=== PATIENT | female | born 1960 | race Caucasian/White ===

== ENCOUNTER → 2017-05-29 | Outpatient (CLI) | payer OTHER | END | disposition home or self-care (01) | LOC: C.PAPS 13:23 | PROVIDERS: ATTEND Family Medicine | DX: Z12.4 Encounter for screening for malignant neoplasm of cervix (principal) ==

== ENCOUNTER → 2017-05-30 | Outpatient (CLI) | payer OTHER ==
[2017-05-30 10:52] LABS: BLOOD UREA NITROGEN 9 mg/dl (7-18); BUN/CREATININE RATIO 11.6 (10-20); CALCIUM 9.3 mg/dl (8.5-10.1); CARBON DIOXIDE 28 mmol/L (21-32); CHLORIDE 108 mmol/L (98-107); CHOLESTEROL 192 mg/dl (0-200); CREATININE 0.73 mg/dl (0.60-1.20); GLUCOSE 88 mg/dl (70-99); POTASSIUM 4.6 mmol/L (3.5-5.1); SODIUM 139 mmol/L (136-145)
[2017-05-30 11:03] LABS: CHOLESTEROL/HDL RATIO 2.6; HDL CHOLESTEROL 73 mg/dl; LDL CHOLESTEROL CALCULATED 99 mg/dl; TRIGLYCERIDES 102 mg/dl (0-150); VERY LOW DENSITY LIPOPROT CALC 20 mg/dl
== END | disposition home or self-care (01) ==
LOC: C.LAB 08:47
PROVIDERS: ATTEND Family Medicine
DX: Z00.00 Encounter for general adult medical examination without abnormal findings (principal); Z13.220 Encounter for screening for lipoid disorders; R63.5 Abnormal weight gain

== ENCOUNTER → 2017-10-30 | Outpatient (CLI) | payer OTHER ==
--- NOTE | 2017-10-30 09:39 | DIAGNOSTIC IMAGING REPORT ---
R SHOULDER MIN 2 VIEWS ROUTINE CLINICAL HISTORY: M25.511 Shoulder pain, [id number] pain COMPARISON: None. DISCUSSION: No acute bony abnormality. Soft tissue calcifications. To the right acromioclavicular joint as well as potentially represents 6 support mechanism. Minimal degenerative changes of acromioclavicular joint specifically. There is no evidence for soft tissue swelling. IMPRESSION: Minimal degenerative change acromioclavicular joint. No acute bony abnormality. The above report was generated using voice recognition software. It may contain grammatical, syntax or spelling errors. Electronically signed by: Markos Araiza M.D. 10/30/2017 9:37 AM Dictated Date/Time: 10/30/2017 9:36 AM
== END | disposition home or self-care (01) ==
LOC: C.RAD 09:07
PROVIDERS: ATTEND Physician Assistant
DX: M25.511 Pain in right shoulder (principal)

== ENCOUNTER → 2017-11-12 | Outpatient (CLI) | payer OTHER ==
--- NOTE | 2017-11-16 07:39 | MAMMOGRAPHY REPORT ---
UNILATERAL RIGHT DIGITAL SCREENING MAMMOGRAM TOMOSYNTHESIS WITH CAD: 11/12/2017 CLINICAL HISTORY: Asymptomatic. Personal history of breast cancer. TECHNIQUE: Breast tomosynthesis in addition to standard 2D mammography was performed. Current study was also evaluated with a Computer Aided Detection (CAD) system. COMPARISON: Comparison is made to exams dated: 10/06/2016 mammogram, 10/03/2015 mammogram, 4 mammogram, 09/22/2013 mammogram, 09/17/2012 mammogram, and 09/16/2011 mammogram - [facility] [place]. BREAST COMPOSITION: There are scattered areas of fibroglandular density in the right breast. FINDINGS: There are no suspicious masses, calcifications, or areas of architectural distortion noted in the right breast. There has been no significant interval change compared to prior exams. IMPRESSION: ACR BI-RADS CATEGORY 1: NEGATIVE There is no mammographic evidence of malignancy in the right breast. A 1 year screening mammogram is recommended. The patient will receive written notification of the results. Approximately 10% of breast cancers are not detected with mammography. A negative mammographic report should not delay biopsy if a clinically suggestive mass is present. Josephine Edmonds M.D. ah/:11/12/2017 16:03:34 [employer] Underwriter: Vania SEGAL)(M), [facility] letter sent: Normal 1/2 BI-RADS Code: ACR BI-RADS Category 1: Negative
== END | disposition home or self-care (01) ==
LOC: C.MAMM 13:26
PROVIDERS: ATTEND Family Medicine
DX: Z12.31 Encounter for screening mammogram for malignant neoplasm of breast (principal); Z90.12 Acquired absence of left breast and nipple

== ENCOUNTER 2025-07-02 16:34 | Observation (INO) ==
--- NOTE | 2025-07-02 16:59 | Emergency Department Note ---
Impression & Plan Pancreatitis, Abdominal pain, Elevated serum glucose ED Provider Note NAME: HAYLEY SOLIS AGE: 64 SEX: F : 1960 ARRIVES VIA: Walk-In INFORMANT: Patient ED PROVIDER(S): Rod Kaplan DO CHIEF COMPLAINT: Abdominal pain HPI: Patient is a 64-year-old female with a past medical history of diabetes, asthma, and COPD who presents ER for periumbilical/epigastric abdominal pain. This started on Thursday. Is associated with nausea. She forced herself to vomit. No previous abdominal surgeries. No dysuria, urgency, or frequency. Pain is slightly worse with eating. No other exacerbating or remitting factors. No fevers. ADDITIONAL HISTORY OBTAINED: Per HPI Chronic Medical/Social Conditions Affecting Care: Per HPI PAST MEDICAL HISTORY:See Below PAST SURGICAL HISTORY:See Below FAMILY HISTORY:See Below SOCIAL HISTORY:See Below HOME MEDICATIONS:See Below ALLERGIES:See Below VITALS:See Below PHYSICAL EXAMINATION: GENERAL: Sitting up in bed, alert, well appearing, well nourished, no distress, non-toxic EYE EXAM: normal conjunctiva. OROPHARYNX: mucous membranes are moist LUNGS: Clear to auscultation. Normal chest wall mechanics HEART: no murmurs, S1 normal and S2 normal ABDOMEN: abdomen soft, minimal tenderness in right upper quadrant, normo-active bowel sounds, no masses, no rebound or guarding. BACK: Back is symmetrical on inspection and there is no deformity, no midline tenderness, no CVA tenderness. SKIN: no rashes and no bruising UPPER EXTREMITIES: upper extremities are grossly normal. LOWER EXTREMITIES: No pitting edema. NEURO EXAM: Normal sensorium, cranial nerves II-XII grossly intact, normal speech, no gross weakness of arms, no gross weakness of legs. MEDICAL DECISION MAKING: Patient is a 64-year-old female who presents ER for abdominal pain. IV was established and blood work was obtained. Labs show mild leukocytosis of 13,000. No significant anemia. BMP with mild hyponatremia at 134. LFTs bilirubin was unremarkable. Lipase was elevated around 300. UA was contaminated. CT Abdo pelvis consistent with pancreatitis. Did show some possible diverticulitis. Was covered with IV Zosyn and IV fluids and morphine. Was updated at bedside. Discussed case with the hospitalist for further evaluation management treatment. Consults/Care Managements Discussions: Per MDM Triage Nursing notes reviewed. Limited review of prior medical records performed Vital Signs: reviewed and remarkable for HTN Differential diagnosis: Differential diagnoses includes but is not limited to gastritis, peptic ulcer disease, GERD, gallbladder disease, pancreatitis, small bowel obstruction, appendicitis, diverticulitis, hernia, urinary tract infection, torsion, /ectopic (if female), perforation, trauma, infectious. ER treatment provided: See below Diagnostics interpreted by me include EKG and cardiac monitoring as listed below: -Cardiac Monitoring: An order was placed for continuous cardiac monitoring. The monitor shows a rate of 90 with sinus rhythm. -ECG: none -Laboratory studies:Interpreted by me as stated above in MDM and shown below. Imaging studies: Xrays: As interpreted by me:none CTs show: CT abdomen pelvis per my pleurae interpretation shows no obvious bowel obstruction CT Abdo pelvis per radiology as described above Procedures:none Critical Care: None Past Med/Surg History Problem List (Updated 07/02/25 @ 22:11 by Rod Kaplan DO) Elevated serum glucose (Acute) Abdominal pain (Acute) Diverticulitis Pancreatitis (Acute) Osteoporosis Vulvitis Vitamin D insufficiency Prediabetes Asthma Emphysema of lung Obesity Tobacco abuse Allergic rhinitis COPD (chronic obstructive pulmonary disease) Anxiety and depression Genital herpes simplex Personal history of breast cancer (1998) Raynauds phenomenon Medical History Biceps tendinitis Snoring Personal history of nicotine dependence Mild airflow obstruction on pulmonary function test Right wrist fracture Chlamydia Surgical History History of hip surgery (02/2024) R ORIF secondary to fracture post fall S/P wrist surgery (08/22/16) R wirst radial shortening osteotomy Status post breast reconstruction Status post tubal ligation History of modified radical mastectomy of left breast (1998) Status post exploratory laparotomy Status post LASIK surgery Family History Father , age 56 Aneurysm Mother Atrial fibrillation Cardiac disorder Multiple myeloma Brother Colorectal cancer, Onset Age: 53 Liver cancer Grandfather Lung cancer Denies family history of Ovarian cancer Prostate cancer Myocardial infarction Breast cancer Social History Smoking Status: Current every day smoker Tobacco Type: Cigarettes Age Started Using Tobacco: 10; packs per day: 1; Second Hand Exposure: No; Do You Dip or Chew Tobacco: No; Hx Alcohol Use: Yes Alcohol Intake Frequency: Monthly or Less Alcohol Intake Frequency Comment: social Hx Substance Use: No Preferred Language: Telugu Visual Impairment: No Limitations Hearing Ability: Normal Outsole Leveler Required: No Beliefs That Will Affect Care: None marital status: single Current Living Situation: Significant Other current occupational status: unemployed 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 How many Children do You have: 2 Feels Safe at Home: Yes Childhood Exposure to Second-Hand Smoke: Yes Diet: regular Diet Comment: regular caffeine: Yes during the past year weight has: remained stable Dental Care, Regularly: Yes Physical Activity Frequency: 3-4 Times per Week Seatbelt Use: always Sunscreen Use: Yes Allergies Allergies Allergy/AdvReac Type Severity Reaction Status Date / Time codeine AdvReac Mild Nausea Verified 07/02/25 21:45 Home Meds Previous Rx's Medication Instructions Recorded fluticasone propionate 50 2 spray intranasal DAILY PRN 01/23/23 mcg/actuation nasal Allergy Symptoms 90 days #48 grams spray,suspension (Flonase Allergy Relief) albuterol sulfate 2.5 mg/3 mL 2.5 mg (3 mL) inhalation Q4H PRN 09/07/23 (0.083 %) solution for nebulization shortness of breath or wheezing #90 mL naproxen 500 mg tablet 500 mg PO Q12H PRN pain #60 tabs 04/08/24 cholecalciferol (vitamin D3) 50 50 mcg PO DAILY #30 caps 04/12/24 mcg (2,000 unit) capsule valacyclovir 500 mg tablet 500 mg PO BID PRN Outbreak #180 06/02/24 (Valtrex) tabs albuterol sulfate 90 mcg/actuation 2 inh inhalation Q6H PRN shortness 04/21/25 aerosol inhaler of breath or wheezing #8.5 grams nystatin 100,000 unit/gram topical 1 applic topical BID PRN groin 05/05/25 powder (Nystop) irritation #60 grams fluticasone fur. 100 mcg-umeclid 1 inh inhalation DAILY #60 ea 05/15/25 62.5 mcg-vilant 25 mcg inhalat.powder (Trelegy Ellipta) Results & Data (ED) Vital Signs Vital Signs - 24 hr 07/02/25 16:42 07/02/25 17:04 07/02/25 17:11 Temperature 37.1 C Temperature Source Temporal Artery Scan Pulse Rate 95 H Pulse Rate [Apical] 87 Pulse Rhythm [Apical] Pulse Strength [Apical] Normal Respiratory Rate 16 18 Respiratory Effort / Characteristics Non-Labored Spontaneous Non-Labored Spontaneous Respiratory Depth Normal Normal Respiratory Pattern Regular Blood Pressure 156/93 H Blood Pressure [Right Arm] 167/88 H Blood Pressure Mean 114 Blood Pressure Mean [Right Arm] 114 Blood Pressure Position Sitting Pulse Oximetry 97 96 96 Oxygen Delivery Method Room Air Room Air Room Air Sepsis Recent Fever Within 48 Hours No Sepsis New/Unexplained Change in Mental Status N/A Sepsis Action Taken by Nursing No Action Required 07/02/25 17:16 07/02/25 18:40 07/02/25 19:00 Temperature Temperature Source Pulse Rate 88 Pulse Rate [Apical] 87 87 Pulse Rhythm [Apical] Regular Pulse Strength [Apical] Normal Normal Respiratory Rate 18 18 Respiratory Effort / Characteristics Non-Labored Spontaneous Non-Labored Spontaneous Respiratory Depth Normal Normal Respiratory Pattern Regular Regular Blood Pressure Blood Pressure [Right Arm] 180/117 H 167/95 H Blood Pressure Mean Blood Pressure Mean [Right Arm] 138 119 Blood Pressure Position Pulse Oximetry 98 97 Oxygen Delivery Method Room Air Room Air Sepsis Recent Fever Within 48 Hours Sepsis New/Unexplained Change in Mental Status Sepsis Action Taken by Nursing Laboratory Data 07/02/25 17:05 07/02/25 17:05 Lab Results 07/02/25 Range/Units 17:05 WBC 13.08 H (4.8-10.8) K/ul RBC 4.75 (4.20-5.40) M/uL Hgb 15.6 (12.0-16.0) g/dl Hct 43.4 (37.0-47.0) % MCV 91.4 (80.0-100.0) fL MCH 32.8 (25.0-34.0) pg MCHC 35.9 (32.0-36.0) g/dL RDW Std Deviation 42.3 (36.4-46.3) fL RDW Coeff of Sigrid 12.5 (11.5-14.5) % Plt Count 213 (130-400) K/uL MPV 11.7 (9.4-12.4) fL Immature Gran % (Auto) 0.3 % Neut % (Auto) 77.0 % Lymph % (Auto) 11.9 % [place] % (Auto) 9.5 % Eos % (Auto) 1.1 % Baso % (Auto) 0.2 % Neut # (Auto) 10.08 H (1.40-6.50) K/uL Lymph # (Auto) 1.56 (1.20-3.40) K/uL [place] # (Auto) 1.24 H (0.11-0.59) K/uL Eos # (Auto) 0.14 (0.00-0.50) K/uL Baso # (Auto) 0.02 (0.00-0.20) K/uL Immature Gran # (Auto) 0.04 (0.01-0.20) K/uL Sodium 134 L (136-145) mmol/L Potassium 4.5 (3.5-5.1) mmol/L Chloride 101 (98-107) mmol/L Carbon Dioxide 25 (21-32) mmol/L Anion Gap 8 (3-11) BUN 10 (6-23) mg/dl Creatinine 0.66 (0.6-1.2) mg/dl Est Cr Clr Drug Dosing 83.0 ml/min eGFR 97.29 BUN/Creatinine Ratio 15.2 (10-20) Glucose 112 H (70-99(Fasting)) mg/dl Calcium 9.8 (8.6-10.3) mg/dl Total Bilirubin 0.6 (0.2-1.0) mg/dl AST 21 (13-39) U/L ALT 14 (7-52) U/L Alkaline Phosphatase 86 (34-104) U/L Total Protein 7.7 (6.0-8.3) gm/dl Albumin 4.5 (3.4-5.0) gm/dl Globulin 3.2 (2.5-4.0) gm/dl Albumin/Globulin Ratio 1.4 (0.9-2) Lipase 286 H (11-82) U/L Urine Color Yellow Urine Appearance Clear (Clear) Urine pH 6.5 (4.5-7.5) Ur Specific [place] 1.018 (1.000-1.030) Urine Protein Trace H (Negative) Urine Glucose (UA) Negative (Negative) Urine Ketones 1+ H (Negative) Urine Blood Negative (Negative) Urine Nitrite Negative (Negative) Urine Bilirubin Negative (Negative) Urine Urobilinogen Negative (Negative) Ur Leukocyte Esterase Trace H (Negative) Urine WBC (Auto) 0-5 (0-5) /hpf Urine RBC (Auto) 3-5 H (0-2) /hpf U Hyaline Cast (Auto) 0-2 (0-2) /lpf U Epithel Cells (Auto) 3-5 H (0-2) /hpf Urine Bacteria (Auto) None Seen (None Seen) Urine Comment Administered Medications Lactated Ringer's (Lr) 1,000 mls @ 200 mls/hr IV .Q5H LALITA Stop: 07/03/25 12:59 Last Admin: 07/02/25 21:59 Dose: 200 mls/hr Documented By: MICHELLE Senna/Docusate Sodium (Docusate Sodium/Senna 50/8.6mg Tab) 2 tab PO HS LALITA Stop: 08/01/25 21:40 Last Admin: 07/02/25 21:48 Dose: Not Given Documented By: MICHELLE Discontinued Medications Sodium Chloride (Nss) 1,000 mls @ 999 mls/hr IV .Q1H1M ONE Stop: 07/02/25 17:56 Last Infusion: 07/02/25 18:35 Dose: Infused Documented By: Admin: 07/02/25 17:05 Dose: 999 mls/hr Documented By: MARIE Piperacillin Sod/Tazobactam Sod (Zosyn) 4.5 gm in 100 mls @ 200 mls/hr IV NOW ONE; Protocol Stop: 07/02/25 20:35 Last Infusion: 07/02/25 21:20 Dose: Infused Documented By: Admin: 07/02/25 20:25 Dose: 200 mls/hr Documented By: LASHONDA Ioversol (Optiray 320 100ml) 93 ml IV ONCE ONE Stop: 07/02/25 18:29 Last Admin: 07/02/25 18:28 Dose: 93 ml Documented By: MARLENY Morphine Sulfate (Morphine Sulfate 2 Mg/Ml Carp) 2 mg IV NOW STA Stop: 07/02/25 19:15 Last Admin: 07/02/25 19:20 Dose: 2 mg Documented By: DAREK Ondansetron HCl (Ondansetron Inj 2 Mg/Ml 2 Ml Vial) 4 mg IV NOW STA Stop: 07/02/25 16:57 Last Admin: 07/02/25 17:08 Dose: 4 mg Documented By: MARIE Imaging Data Radiologist's Impression: Abdomen/Pelvis CT 07/02/25 16:56 CT ABDOMEN and PELVIS with INTRAVENOUS CONTRAST HISTORY: Abdominal pain TECHNIQUE: CT abdomen and pelvis with contrast. IV CONTRAST: 100 mL of OMNIPAQUE 300 ENTERIC CONTRAST: Not Given COMPARISON: CT abdomen pelvis October 21, 2020. FINDINGS: LOWER CHEST: Unremarkable LIVER: No focal lesion identified. Hepatic steatosis GALLBLADDER/BILIARY: Unremarkable gallbladder. No abnormal biliary dilatation. SPLEEN: Unremarkable. PANCREAS: There are inflammatory changes of the pancreas with peripancreatic fat stranding and fluid. No organized/drainable peripancreatic fluid collection is identified.. ADRENALS: Unremarkable. KIDNEYS: Atrophic right kidney. No stones or hydronephrosis identified. PERITONEUM/RETROPERITONEUM. No lymphadenopathy by size criteria. No aortic aneurysm. GASTROINTESTINAL: No obstruction. Normal appendix. Multiple loops of small bowel demonstrate inflammatory changes with mild wall thickening. There is a long segment wall thickening to the sigmoid colon and the rectum. Extensive colonic diverticular disease of the sigmoid colon with more focal mild the pericolonic fat stranding by the sigmoid colon. REPRODUCTIVE: No suspicious pelvic mass is identified. URINARY BLADDER: Unremarkable BONES: No acute findings. Intramedullary christian/screw in the proximal right femur IMPRESSION: Findings of acute interstitial pancreatitis. No drainable/organized fluid collection is identified surrounding the pancreas. Recommend correlation with lipase. Mild colitis of the sigmoid colon and the rectum is also suggested. Extensive colonic diverticular disease of the sigmoid colon where there is a more focal pericolonic inflammation. This could represent a superimposed mild acute diverticulitis. Electronically signed by Darrell Noel 07-02-2025 8:01 PM Discharge Plan Visit Data Chief Complaint: Abdominal Pain Stated Complaint: UPPER ABD PAIN ED Provider: Rod Kaplan Discharge Problem: Pancreatitis, Abdominal pain, Elevated serum glucose Condition: Fair Discharge Instructions Interventions: ED Discharge Assessment Last Done: 07/02/25 21:07 Discharge Problem: Pancreatitis Qualifiers: Chronicity: acute Pancreatitis type: unspecified pancreatitis type Acute pancreatitis complication: unspecified Qualified Code(s): K85.90 - Acute pancreatitis without necrosis or infection, unspecified Abdominal pain Qualifiers: Abdominal location: unspecified location Qualified Code(s): R10.9 - Unspecified abdominal pain
[2025-07-02] MEDS: SODIUM CHLORIDE 0.9% 1,000 ML IV ONE (17:05)
[2025-07-02] MEDS: ONDANSETRON INJ 2 MG/ML 2 ML VIAL IV STA (17:08)
[2025-07-02 17:34] LABS: Hematocrit (blood only) 43.4 % (37.0-47.0); Hemoglobin 15.6 g/dl (12.0-16.0); Immature Granulocytes # (auto) 0.04 K/uL (0.01-0.20); Immature Granulocytes % (auto) 0.3 %; Mean Corpuscular Hemoglobin 32.8 pg (25.0-34.0); Mean Corpuscular Volume 91.4 fL (80.0-100.0); Platelet Count 213 K/uL (130-400); RDW Standard Deviation 42.3 fL (36.4-46.3); Red Blood Count 4.75 M/uL (4.20-5.40); White Blood Count 13.08 K/ul (4.8-10.8)
[2025-07-02 17:51] LABS: Appearance Urine Clear (Clear); Bacteria Urine Automated None Seen (None Seen); Cast Urine Automated 0-2 /lpf (0-2); Glucose Urine UA Negative (Negative); WBC Urine Automated 0-5 /hpf (0-5)
[2025-07-02 18:04] LABS: Alanine Aminotransferase 14.0 U/L (7-52); Albumin Globulin Ratio 1.4 (0.9-2); Alkaline Phosphatase 86.0 U/L (34-104); Anion Gap 8.0 (3-11); Bilirubin,Total 0.6 mg/dl (0.2-1.0); Blood Urea Nitrogen 10.0 mg/dl (6-23); Calcium 9.8 mg/dl (8.6-10.3); Carbon Dioxide 25.0 mmol/L (21-32); Chloride 101.0 mmol/L (98-107); Creatinine Clr Calc Pharmacy 83.0 ml/min; Globulin 3.2 gm/dl (2.5-4.0); Glucose 112.0 mg/dl (70-99(Fasting)); Lipase 286.0 U/L (11-82); Potassium 4.5 mmol/L (3.5-5.1); Sodium 134.0 mmol/L (136-145); Total Protein 7.7 gm/dl (6.0-8.3)
[2025-07-02] MEDS: OPTIRAY 320 100ml IV ONE (18:28)
[2025-07-02] MEDS: MoRPHine SULFATE 2 MG/ML CARP IV STA (19:20)
--- NOTE | 2025-07-02 19:34 | History & Physical Report ---
Date of Service July 02, 2025 Assessment & Plan (1) Pancreatitis: (2) Diverticulitis: (3) COPD (chronic obstructive pulmonary disease): Plan 64yo female with history of COPD presenting with upper abdominal pain. #Acute pancreatitis - patient is afebrile, HD stable, non-toxic in appearance. Her pain is in the upper abdomen. Mildly elevated lipase = 286. CT of the abdomen significant for acute interstitial pancreatitis with no drainable/organized fluid collection. No gallstones present. Etiology likely secondary to patient's GLP-1 which she recently started. -Observation to medical -Keep NPO -Check Lipid panel to assess TG level -LR at 200mL/hr x 3L ordered -Pain control with Morphine PRN - 2mg for pain 1-5 and 4mg for pain 6-10 -Zofran PRN nausea -Bowel regimen scheduled and PRN - Docusate/Senna 2tabs po qHS, Miralax PRN -Narcan available as needed for accidental overdose #Diverticulitis - CT as above with possible diverticulitis. Patient with no lower abdominal pain. Patient has received a dose of Zosyn -Will hold off on additional antibiotics for now -Repeat CBC in AM -Patient should have followup imaging vs colonoscopy for followup of focal pericolonic inflammation #COPD -Continue Trelegy or formulary equivalent -Albuterol PRN #Ppx - Lovenox History of Present Illness Chief Complaint: upper abdominal pain Primary Care Provider: DO Kusum Hughes Cristina is a pleasant 64yo female with history of COPD presenting with abdominal pain. Patient went out to dinner with her grandson on Thursday06/30/25 evening. They went to [employer] and she had some iced tea and pizza. Around 21:00 she developed severe, bandlike, upper abdominal pain with nausea. She had several episodes of dry heaving. Pain has been persistent, progressively worsening, 8/10 in severity on arrival. Patient has not been eating - had some soup today but pain increased. She took Mylanta and Pepto-Bismol with no relief. No prior history of pancreatitis. She drinks EtOH socially but did not drink on the day her pain started. No history of gallstones. Patient did inform ER Nurse Julio that, on Saturday 06/30, she did started taking a GLP-1 medication that she purchased off [employer]. In the ER patient afebrile, mildly hypertensive otherwise stable. ER Course: NSS x 1L Zofran 4mg IV Morphine 2mg IV Zosyn 4.5gm IV Allergies Allergy/AdvReac Type Severity Reaction Status Date / Time Codeine Derivatives Allergy Mild nausea Uncoded 07/02/25 20:00 Home Medications Medication Instructions Recorded Confirmed Type fluticasone propionate 50 2 spray intranasal DAILY PRN 01/23/23 07/02/25 Rx mcg/actuation nasal Allergy Symptoms 90 days #48 grams spray,suspension (Flonase Allergy Relief) albuterol sulfate 2.5 mg/3 mL 2.5 mg (3 mL) inhalation Q4H PRN 09/07/23 07/02/25 Rx (0.083 %) solution for nebulization shortness of breath or wheezing #90 mL naproxen 500 mg tablet 500 mg PO Q12H PRN pain #60 tabs 04/08/24 07/02/25 Rx cholecalciferol (vitamin D3) 50 50 mcg PO DAILY #30 caps 04/12/24 07/02/25 Rx mcg (2,000 unit) capsule valacyclovir 500 mg tablet 500 mg PO BID PRN Outbreak #180 06/02/24 07/02/25 Rx (Valtrex) tabs albuterol sulfate 90 mcg/actuation 2 inh inhalation Q6H PRN shortness 04/21/25 07/02/25 Rx aerosol inhaler of breath or wheezing #8.5 grams nystatin 100,000 unit/gram topical 1 applic topical BID PRN groin 05/05/25 07/02/25 Rx powder (Nystop) irritation #60 grams fluticasone fur. 100 mcg-umeclid 1 inh inhalation DAILY #60 ea 05/15/25 07/02/25 Rx 62.5 mcg-vilant 25 mcg inhalat.powder (Trelegy Ellipta) Past Med/Surg History Problem List (Updated 07/02/25 @ 21:31 by Genet Wang DO) Diverticulitis Pancreatitis Osteoporosis Vulvitis Vitamin D insufficiency Prediabetes Asthma Emphysema of lung Obesity Tobacco abuse Allergic rhinitis COPD (chronic obstructive pulmonary disease) Anxiety and depression Genital herpes simplex Personal history of breast cancer (1998) Raynauds phenomenon Medical History Biceps tendinitis Snoring Personal history of nicotine dependence Mild airflow obstruction on pulmonary function test Right wrist fracture Chlamydia Surgical History History of hip surgery (02/2024) R ORIF secondary to fracture post fall S/P wrist surgery (08/22/16) R wirst radial shortening osteotomy Status post breast reconstruction Status post tubal ligation History of modified radical mastectomy of left breast (1998) Status post exploratory laparotomy Status post LASIK surgery Family History Father , age 56 Aneurysm Mother Atrial fibrillation Cardiac disorder Multiple myeloma Brother Colorectal cancer, Onset Age: 53 Liver cancer Grandfather Lung cancer Denies family history of Ovarian cancer Prostate cancer Myocardial infarction Breast cancer Social History Smoking Status: Current every day smoker Tobacco Type: Cigarettes Age Started Using Tobacco: 10; packs per day: 1; Second Hand Exposure: No; Do You Dip or Chew Tobacco: No; Hx Alcohol Use: Yes Alcohol Intake Frequency: Monthly or Less Alcohol Intake Frequency Comment: social Hx Substance Use: No Preferred Language: Vietnamese Visual Impairment: No Limitations Hearing Ability: Normal [employer] Mathematics Teacher Required: No Beliefs That Will Affect Care: None marital status: single Current Living Situation: Significant Other current occupational status: unemployed 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 How many Children do You have: 2 Feels Safe at Home: Yes Childhood Exposure to Second-Hand Smoke: Yes Diet: regular Diet Comment: regular caffeine: Yes during the past year weight has: remained stable Dental Care, Regularly: Yes Physical Activity Frequency: 3-4 Times per Week Seatbelt Use: always Sunscreen Use: Yes Review of Systems Review of Systems: All systems reviewed & are unremarkable except as noted in HPI & below Physical Exam Physical Exam: General: patient resting comfortably, NAD, non-toxic in appearance, AA&O x 4 Skin: warm, dry, intact, no rashes or lesions HEENT: NC/AT, PERRL, EOMI, anicteric sclera, conjunctiva without injection, external ear normal to inspection and nontender, nares patent, moist mucus membranes, dentition intact, no oropharyngeal lesions, neck supple, trachea midline, no LAD, no thyromegaly, no JVD Heart: +S1/S2, regular, no m/r/g Lungs: equal air entry bilaterally, no rales/rhonchi/wheezes Abd: +BS, soft, ND, tenderness in the mid-abdomen, no bruising, no masses/organomegaly/ascites Ext: warm, 2+ pulses in UE/LE bilaterally, no clubbing/cyanosis or edema Neuro: nonfocal, patient AA&O x 4, speech intact, no facial droop, moving all extremities on command with equal strength 5/5 Results & Data Results & Data Vital Signs (Past 12 Hours) Vital Signs Temp Pulse Pulse Resp BP BP Pulse Ox 07/02/25 19:00 87 18 167/95 H 97 07/02/25 18:40 87 18 180/117 H 98 07/02/25 17:16 88 07/02/25 17:11 87 18 167/88 H 96 07/02/25 17:04 96 07/02/25 16:42 37.1 C 95 H 16 156/93 H 97 O2 Del Method 07/02/25 19:00 Room Air 07/02/25 18:40 Room Air 07/02/25 17:16 07/02/25 17:11 Room Air 07/02/25 17:04 Room Air 07/02/25 16:42 Room Air Laboratory Results Laboratory Results WBC 13.08 K/ul (4.8-10.8) H 07/02/25 17:05 RBC 4.75 M/uL (4.20-5.40) 07/02/25 17:05 Hgb 15.6 g/dl (12.0-16.0) 07/02/25 17:05 Hct 43.4 % (37.0-47.0) 07/02/25 17:05 MCV 91.4 fL (80.0-100.0) 07/02/25 17:05 MCH 32.8 pg (25.0-34.0) 07/02/25 17:05 MCHC 35.9 g/dL (32.0-36.0) 07/02/25 17:05 RDW Std Deviation 42.3 fL (36.4-46.3) 07/02/25 17:05 RDW Coeff of Sigrid 12.5 % (11.5-14.5) 07/02/25 17:05 Plt Count 213 K/uL (130-400) 07/02/25 17:05 MPV 11.7 fL (9.4-12.4) 07/02/25 17:05 Immature Gran % (Auto) 0.3 % 07/02/25 17:05 Neut % (Auto) 77.0 % 07/02/25 17:05 Lymph % (Auto) 11.9 % 07/02/25 17:05 [place] % (Auto) 9.5 % 07/02/25 17:05 Eos % (Auto) 1.1 % 07/02/25 17:05 Baso % (Auto) 0.2 % 07/02/25 17:05 Neut # (Auto) 10.08 K/uL (1.40-6.50) H 07/02/25 17:05 Lymph # (Auto) 1.56 K/uL (1.20-3.40) 07/02/25 17:05 [place] # (Auto) 1.24 K/uL (0.11-0.59) H 07/02/25 17:05 Eos # (Auto) 0.14 K/uL (0.00-0.50) 07/02/25 17:05 Baso # (Auto) 0.02 K/uL (0.00-0.20) 07/02/25 17:05 Immature Gran # (Auto) 0.04 K/uL (0.01-0.20) 07/02/25 17:05 Sodium 134 mmol/L (136-145) L 07/02/25 17:05 Potassium 4.5 mmol/L (3.5-5.1) 07/02/25 17:05 Chloride 101 mmol/L (98-107) 07/02/25 17:05 Carbon Dioxide 25 mmol/L (21-32) 07/02/25 17:05 Anion Gap 8 (3-11) 07/02/25 17:05 BUN 10 mg/dl (6-23) 07/02/25 17:05 Creatinine 0.66 mg/dl (0.6-1.2) 07/02/25 17:05 Est Cr Clr Drug Dosing 83.0 ml/min 07/02/25 17:05 eGFR 97.29 07/02/25 17:05 BUN/Creatinine Ratio 15.2 (10-20) 07/02/25 17:05 Glucose 112 mg/dl (70-99(Fasting)) H 07/02/25 17:05 Calcium 9.8 mg/dl (8.6-10.3) 07/02/25 17:05 Total Bilirubin 0.6 mg/dl (0.2-1.0) 07/02/25 17:05 AST 21 U/L (13-39) 07/02/25 17:05 ALT 14 U/L (7-52) 07/02/25 17:05 Alkaline Phosphatase 86 U/L (34-104) 07/02/25 17:05 Total Protein 7.7 gm/dl (6.0-8.3) 07/02/25 17:05 Albumin 4.5 gm/dl (3.4-5.0) 07/02/25 17:05 Globulin 3.2 gm/dl (2.5-4.0) 07/02/25 17:05 Albumin/Globulin Ratio 1.4 (0.9-2) 07/02/25 17:05 Lipase 286 U/L (11-82) H 07/02/25 17:05 Urine Color Yellow 07/02/25 17:05 Urine Appearance Clear (Clear) 07/02/25 17:05 Urine pH 6.5 (4.5-7.5) 07/02/25 17:05 Ur Specific Barnes 1.018 (1.000-1.030) 07/02/25 17:05 Urine Protein Trace (Negative) H 07/02/25 17:05 Urine Glucose (UA) Negative (Negative) 07/02/25 17:05 Urine Ketones 1+ (Negative) H 07/02/25 17:05 Urine Blood Negative (Negative) 07/02/25 17:05 Urine Nitrite Negative (Negative) 07/02/25 17:05 Urine Bilirubin Negative (Negative) 07/02/25 17:05 Urine Urobilinogen Negative (Negative) 07/02/25 17:05 Ur Leukocyte Esterase Trace (Negative) H 07/02/25 17:05 Urine WBC (Auto) 0-5 /hpf (0-5) 07/02/25 17:05 Urine RBC (Auto) 3-5 /hpf (0-2) H 07/02/25 17:05 U Hyaline Cast (Auto) 0-2 /lpf (0-2) 07/02/25 17:05 U Epithel Cells (Auto) 3-5 /hpf (0-2) H 07/02/25 17:05 Urine Bacteria (Auto) None Seen (None Seen) 07/02/25 17:05 Urine Comment 07/02/25 17:05 Impressions Abdomen/Pelvis CT 07/02/25 16:56 CT ABDOMEN and PELVIS with INTRAVENOUS CONTRAST HISTORY: Abdominal pain TECHNIQUE: CT abdomen and pelvis with contrast. IV CONTRAST: 100 mL of OMNIPAQUE 300 ENTERIC CONTRAST: Not Given COMPARISON: CT abdomen pelvis October 21, 2020. FINDINGS: LOWER CHEST: Unremarkable LIVER: No focal lesion identified. Hepatic steatosis GALLBLADDER/BILIARY: Unremarkable gallbladder. No abnormal biliary dilatation. SPLEEN: Unremarkable. PANCREAS: There are inflammatory changes of the pancreas with peripancreatic fat stranding and fluid. No organized/drainable peripancreatic fluid collection is identified.. ADRENALS: Unremarkable. KIDNEYS: Atrophic right kidney. No stones or hydronephrosis identified. PERITONEUM/RETROPERITONEUM. No lymphadenopathy by size criteria. No aortic aneurysm. GASTROINTESTINAL: No obstruction. Normal appendix. Multiple loops of small bowel demonstrate inflammatory changes with mild wall thickening. There is a long segment wall thickening to the sigmoid colon and the rectum. Extensive colonic diverticular disease of the sigmoid colon with more focal mild the pericolonic fat stranding by the sigmoid colon. REPRODUCTIVE: No suspicious pelvic mass is identified. URINARY BLADDER: Unremarkable BONES: No acute findings. Intramedullary christian/screw in the proximal right femur IMPRESSION: Findings of acute interstitial pancreatitis. No drainable/organized fluid collection is identified surrounding the pancreas. Recommend correlation with lipase. Mild colitis of the sigmoid colon and the rectum is also suggested. Extensive colonic diverticular disease of the sigmoid colon where there is a more focal pericolonic inflammation. This could represent a superimposed mild acute diverticulitis. Electronically signed by Darrell Noel 07-02-2025 8:01 PM PG Care Time/CCT Total # of Minutes Spent Total Time Spent with Patient: Total time spent is greater than 50% in coordination of care (as documented) at patient's floor/unit and/or counseling patient: Coding Level of Care Code 14540 INT INP/OBS CARE 3/75MIN Diagnoses Pancreatitis K85.90 Diverticulitis K57.92 COPD (chronic obstructive pulmonary disease) J44.9
--- NOTE | 2025-07-02 20:02 | CT Scan Report ---
CT ABDOMEN and PELVIS with INTRAVENOUS CONTRAST HISTORY: Abdominal pain TECHNIQUE: CT abdomen and pelvis with contrast. IV CONTRAST: 100 mL of OMNIPAQUE 300 ENTERIC CONTRAST: Not Given COMPARISON: CT abdomen pelvis October 21, 2020. FINDINGS: LOWER CHEST: Unremarkable LIVER: No focal lesion identified. Hepatic steatosis GALLBLADDER/BILIARY: Unremarkable gallbladder. No abnormal biliary dilatation. SPLEEN: Unremarkable. PANCREAS: There are inflammatory changes of the pancreas with peripancreatic fat stranding and fluid. No organized/drainable peripancreatic fluid collection is identified.. ADRENALS: Unremarkable. KIDNEYS: Atrophic right kidney. No stones or hydronephrosis identified. PERITONEUM/RETROPERITONEUM. No lymphadenopathy by size criteria. No aortic aneurysm. GASTROINTESTINAL: No obstruction. Normal appendix. Multiple loops of small bowel demonstrate inflammatory changes with mild wall thickening. There is a long segment wall thickening to the sigmoid colon and the rectum. Extensive colonic diverticular disease of the sigmoid colon with more focal mild the pericolonic fat stranding by the sigmoid colon. REPRODUCTIVE: No suspicious pelvic mass is identified. URINARY BLADDER: Unremarkable BONES: No acute findings. Intramedullary christian/screw in the proximal right femur IMPRESSION: Findings of acute interstitial pancreatitis. No drainable/organized fluid collection is identified surrounding the pancreas. Recommend correlation with lipase. Mild colitis of the sigmoid colon and the rectum is also suggested. Extensive colonic diverticular disease of the sigmoid colon where there is a more focal pericolonic inflammation. This could represent a superimposed mild acute diverticulitis. Electronically signed by Darrell Noel 07-02-2025 8:01 PM
[2025-07-02] MEDS: PIPERACILLIN/TAZOBACTAM 4.5 GM/100 ML BAG IV ONE (20:25)
[2025-07-02] MEDS ORDERED: NALOXONE HCL 0.4 MG/1 ML VIAL/CARP IV PRN (21:41)
[2025-07-02] MEDS ORDERED: ONDANSETRON INJ 2 MG/ML 2 ML VIAL IV PRN (21:41)
[2025-07-02] MEDS ORDERED: MoRPHine SULFATE 2 MG/ML CARP IV PRN (21:41)
[2025-07-02] MEDS ORDERED: MoRPHine SULFATE 4 MG/ML 1 ML CARP\\VIAL IV PRN (21:41)
[2025-07-02] MEDS ORDERED: POLYETHYLENE (MIRALAX) 17 GM PACK PO PRN (21:41)
[2025-07-02] MEDS ORDERED: ACETAMINOPHEN 325 MG TAB PO PRN (21:41)
[2025-07-02] MEDS ORDERED: ALBUTEROL HFA 8 GM INHALER INH PRN (21:41)
[2025-07-02] MEDS: DOCUSATE SODIUM/SENNA 50/8.6MG TAB PO SCH (21:48)
[2025-07-02] MEDS: LACTATED RINGER'S 1,000 ML IV SCH (21:59)
[2025-07-03 00:07] LABS: Magnesium 2.0 mg/dl (1.7-2.4)
[2025-07-03 00:12] LABS: Cholesterol 195.0 mg/dl (0-200); HDL Cholesterol 86.0 mg/dl; Triglycerides 84.0 mg/dl (0-150)
[2025-07-03 07:10] LABS: Red Blood Count 4.19 M/uL (4.20-5.40); White Blood Count 10.81 K/ul (4.8-10.8)
[2025-07-03 07:11] LABS: Hematocrit (blood only) 38.4 % (37.0-47.0); Hemoglobin 13.7 g/dl (12.0-16.0); Mean Corpuscular Hemoglobin 32.7 pg (25.0-34.0); Mean Corpuscular Volume 91.6 fL (80.0-100.0); Platelet Count 180 K/uL (130-400); RDW Standard Deviation 42.7 fL (36.4-46.3)
[2025-07-03 07:42] LABS: Anion Gap 6.0 (3-11); Blood Urea Nitrogen 7.0 mg/dl (6-23); Calcium 9.1 mg/dl (8.6-10.3); Carbon Dioxide 25.0 mmol/L (21-32); Chloride 104.0 mmol/L (98-107); Creatinine Clr Calc Pharmacy 103.4 ml/min; Glucose 99.0 mg/dl (70-99(Fasting)); Potassium 4.1 mmol/L (3.5-5.1); Sodium 135.0 mmol/L (136-145)
[2025-07-03] MEDS: UMECLIDINIUM/VILANTEROL 62.5/25MCG 7 PUFFS/INHALER INH SCH (08:43)
[2025-07-03] MEDS: FLUTICASONE FUROATE 100MCG 14 PUFFS/INHALER INH SCH (08:43)
[2025-07-03] MEDS ORDERED: NON-FORMULARY MEDICATION (Fluticasone-Umeclidin-Vilanter [Trelegy Ellipta] 100-62.5-25 mcg INH SCH (09:00)
[2025-07-03 10:19] LABS: Lipase 81.0 U/L (11-82)
[2025-07-03] MEDS: ENOXAPARIN INJ 40 MG/0.4 ML SYR SQ SCH (10:45)
[2025-07-03 15:12] VITALS: BP 147/82; PULSE 87; RESP 18; TEMP 98.1; O2SAT 96
--- NOTE | 2025-07-03 15:36 | Discharge Summary ---
Discharge Summary Date of Service July 03, 2025 Principal Dx & Hospital Course #1 = Principal Diagnosis (1) Pancreatitis: (2) Diverticulitis: (3) COPD (chronic obstructive pulmonary disease): Plan This patient is a 64-year-old female presented on 07/02 for severe/worsening epigastric abdominal pain. #Acute pancreatitis - patient was afebrile, HD stable, non-toxic in appearance. Her pain is in the upper abdomen. CT of the abdomen significant for acute interstitial pancreatitis with no drainable/organized fluid collection. No gallstones present. Etiology likely secondary to patient's GLP-1 which she recently started. Lipase trend: 286 - > 81 (WNL) TGs WNL LR at 200mL/hr x 3L Patient advanced to a clear liquid diet on the morning of 07/03, and advance to a low-fat diet for lunch Tolerating full diet without recurrence of epigastric pain Not requiring pain control medications on 07/03 Will plan for discharge home on a clear liquid diet #Diverticulitis Mild; CT as above with possible diverticulitis. Patient with no lower abdominal pain Zosyn x 1 given in the ED Mild leukocytosis at 13 on arrival, but WNL at 10.8 at time of discharge Will hold off on additional antibiotics for now Patient should have followup imaging vs colonoscopy for followup of focal pericolonic inflammation #COPD Continue Trelegy or formulary equivalent Albuterol PRN #Suspected atrophic vaginitis Trial of Estrace cream 1 g daily x 14 days upon discharge Recommend follow-up with gynecology upon discharge Day of discharge 07/03: VSS at time of discharge Mrs. Evans is happy to report that she is feeling "much better" today compared to yesterday. Yesterday her epigastric pain was a 9 out of 10, but now it is currently a 1 out of 10. No pain radiation to the back. She characterizes the pain as a "tight almond blancher" in her epigastric abdominal region. Patient has had difficulty eating food since last Thursday, but has been able to keep down liquids at home. She tolerated a clear liquid diet for breakfast this morning, and ate some crackers/vanilla pudding for lunch without difficulty or recurrence of nausea/abdominal pain. She is amenable to trying a low-fat diet for dinner and expresses a desire to go home today if tolerating that as well. No BMs this morning. No changes in urinary or bowel habits. She denies any vomiting at home, but has been dealing with ongoing nausea. Patient denies prior history of pancreatitis or diverticulitis. Last colonoscopy was 5 years ago with Alex Perez. Patient reports that she has only taken 1 dose of a GLP-1, and is unsure if this is what caused her pancreatitis. Additionally, the patient reports that she has been having intermittent Itching/pain outside her vagina over the past couple months. She follows with gynecology, and saw them within the past year and tested negative for yeast infection/STDs. She reports she has not been sexually active recently. Patient denies any vaginal discharge. No vaginal bleeding. Not malodorous. She has been using vagisil as needed, but this has not been helping. At home she has been applying bee venom cream, which la, but stops the itching. ROS: Patient endorses nausea, and mild epigastric pain. Patient denies fever, chills, night sweats, chest pain, SOB, pleuritic CP, lower back pain, rashes or bruising on the abdomen or flanks, changes in urinary bowel habits, vomiting, diarrhea, or numbness or tingling in the legs. Disposition: Discharge home Admission HPI Per Admitting Provider Kusum Evans is a pleasant 64yo female with history of COPD presenting with a bdominal pain. Patient went out to dinner with her grandson on Thursday06/30/25 evening. They went to [employer] and she had some iced tea and pizza. Around 21:00 she developed severe, bandlike, upper abdominal pain with nausea. She had several episodes of dry heaving. Pain has been persistent, progressively worsening, 8/10 in severity on arrival. Patient has not been eating - had some soup today but pain increased. She took Mylanta and Pepto-Bismol with no relief. No prior history of pancreatitis. She drinks EtOH socially but did not drink on the day her pain started. No history of gallstones. Patient did inform ER Nurse Julio that, on Saturday 06/30, she did started taking a GLP-1 medication that she purchased off of [employer]. In the ER patient afebrile, mildly hypertensive otherwise stable. ER Course: NSS x 1L Zofran 4mg IV Morphine 2mg IV Zosyn 4.5gm IV Admission Exam Per Admitting Provider General: patient resting comfortably, NAD, non-toxic in appearance, AA&O x 4 Skin: warm, dry, intact, no rashes or lesions HEENT: NC/AT, PERRL, EOMI, anicteric sclera, conjunctiva without injection, external ear normal to inspection and nontender, nares patent, moist mucus membranes, dentition intact, no oropharyngeal lesions, neck supple, trachea midline, no LAD, no thyromegaly, no JVD Heart: +S1/S2, regular, no m/r/g Lungs: equal air entry bilaterally, no rales/rhonchi/wheezes Abd: +BS, soft, ND, tenderness in the mid-abdomen, no bruising, no masses/organomegaly/ascites Ext: warm, 2+ pulses in UE/LE bilaterally, no clubbing/cyanosis or edema Neuro: nonfocal, patient AA&O x 4, speech intact, no facial droop, moving all extremities on command with equal strength 5/5 Discharge Exam General: no acute distress; pleasant affect; non-toxic appearing; cooperative; SpO2 96% on RA HEENT: normocephalic, atraumatic; no scleral icterus; PERRLA; vision and hearing grossly intact Neck: supple; no lymphadenopathy; trachea midline Skin: warm, dry without signs of tenting; no cyanosis; no rashes, bruising, lesions, or erythema noted CV: chest wall NTP; RRR; S1/S2 normal; no murmurs/rubs/gallops; pulses intact and symmetric at radial, DP, and PT Lungs: no acute respiratory distress; symmetrical chest wall expansion; clear breath sounds across all lung reno w/o adventitious sounds; no wheezing ABD: Soft, epigastric region is mildly TTP; no rashes or bruises appreciated the abdomen flanks bilaterally; BS present; no rebound/guarding; no distention Back: Negative CVA tenderness MSK: no tics or fasciculations; no edema noted in the LEs b/l, nonerythematous Neuro: A&Ox3; normal mood and affect; fluent speech; no focal deficits; s ensation grossly intact in the LEs b/l Discharge Plan Discharge Items Patient Disposition: Home - Self-Care Reason For Visit: ACUTE PANCREATITIS Discharge Diagnosis: Acute pancreatitis, mild diverticulitis Condition on Discharge: Fair Activity: Resume your previous activity Non-emergency contact: Primary Care Provider Call non-emergency contact if: you have any medication questions, your symptoms worsen, your pain is not controlled and you have a fever Follow-up/Referrals: Lashawn Vang, [Primary Care Provider] - Diet: Low Fat Addtl Attending Provider Instructions: You were hospitalized at [facility] from 07/02 - 07/03 for worsening abdominal pain. On arrival, imaging of your abdomen pelvis revealed a condition called "pancreatitis", which is inflammation of the pancreas. We also saw mild inflammation in your colon that could represent something called "diverticulitis". The treatment for both these conditions is bowel rest, IV fluids, IV pain control, IV antinausea medications, and slowly advancing her diet. Additionally, your blood work revealed an elevated lipase level, which is the enzyme that the pancreas releases. You reported resolution of your abdominal pain on 07/03. Your diet was also advanced to solids, and you reported you were able to eat without recurrence of nausea or abdominal pain. While your white blood cell was mildly elevated on arrival, it is back down to a normal range today. Additionally, your lipase level has returned to normal. Given your vital signs are stable, we feel that you are safe to return home with close PCP follow-up. Please plan to follow-up with your PCP in the next 7 to 10 days for a transitional care appointment. We recommend you hereto a light/low-fat diet until seen by your PCP for follow-up (see attached pamphlet for foods to avoid). Additionally, you mentioned that you are having some itching/pain in your groin region prior to discharge. We will plan to send a prescription for Estrace cream to your pharmacy; please apply 1 g daily x 2 weeks. We also recommend that you follow-up with your bender machine at your earliest convenience. If you develop any new or worsening symptoms, such as nausea/vomiting with eating, recurrence of severe/intractable epigastric abdominal pain, lower back pain, fever, chills, chest pain, or trouble breathing, please return to the [facility] department immediately. It was a pleasure taking care of you. Please reach out with any questions or concerns. Sincerely, The Hospital medicine team at [facility] Pending Studies at Discharge: No Stand-Alone Forms: My [facility] Medications and DC Order Prescriptions: New estradiol [Estrace] 0.01 % (0.1 mg/gram) cream 1 g vaginal DAILY Qty: 42.5 0RF Rx Instructions: Apply 1 g once daily for 14 days Continued cholecalciferol (vitamin D3) 50 mcg (2,000 unit) capsule 50 mcg PO DAILY Qty: 30 0RF valacyclovir [Valtrex] 500 mg tablet 500 mg PO BID PRN (Reason: Outbreak) Qty: 180 1RF Rx Instructions: Take for 7 days. Repeat PRN albuterol sulfate 90 mcg/actuation HFA aerosol inhaler 2 inh inhalation Q6H PRN (Reason: shortness of breath or wheezing) Qty: 8.5 2RF Trelegy Ellipta 100-62.5-25 mcg blister with device 1 inh inhalation DAILY Qty: 60 2RF fluticasone propionate [Flonase Allergy Relief] 50 mcg/actuation spray,suspension 2 spray INTNAS DAILY PRN (Reason: Allergy Symptoms) 90 Days Qty: 48 1RF Rx Instructions: administer into each nostril naproxen 500 mg tablet 500 mg PO Q12H PRN (Reason: pain) Qty: 60 2RF albuterol sulfate 2.5 mg /3 mL (0.083 %) solution for nebulization 2.5 mg inhalation Q4H PRN (Reason: shortness of breath or wheezing) Qty: 90 2RF nystatin [Nystop] 100,000 unit/gram powder 1 applic TOP BID PRN (Reason: groin irritation) Qty: 60 5RF Discharge Orders: Discharge Order (Routine); Ordered 07/03/25 Ordered By: Toan Root/Other Patient Handouts: Pancreatitis Acute Dc, ED Diet, Low Fat Admission Data Admit Date/Time: 07/02/25 20:09 Attending Provider: Joe Harmon Admit Provider: Genet Wang Primary Care Provider: Lashawn Vang Other Providers: Genet Wang Hospital Stay Data Consultations 07/02/25 19:14 ED Decision to Admit Stat Diagnostic Imagining Performed 07/02/25 16:56 CT abd pelvis IV con only Stat Pending Results Patient Have Any Pending Studies at Discharge: No Discharge Instructions Given to Patient (Per Discharging Provider) You were hospitalized at [facility] from 07/02 - 07/03 for worsening abdominal pain. On arrival, imaging of your abdomen pelvis revealed a condition called "pancreatitis", which is inflammation of the pancreas. We also saw mild inflammation in your colon that could represent something called "diverticulitis". The treatment for both these conditions is bowel rest, IV fluids, IV pain control, IV antinausea medications, and slowly advancing her diet. Additionally, your blood work revealed an elevated lipase level, which is the enzyme that the pancreas releases. You reported resolution of your abdominal pain on 07/03. Your diet was also advanced to solids, and you reported you were able to eat without recurrence of nausea or abdominal pain. While your white blood cell was mildly elevated on arrival, it is back down to a normal range today. Additionally, your lipase level has returned to normal. Given your vital signs are stable, we feel that you are safe to return home with close PCP follow-up. Please plan to follow-up with your PCP in the next 7 to 10 days for a transitional care appointment. We recommend you hereto a light/low-fat diet until seen by your PCP for follow-up (see attached pamphlet for foods to avoid). Additionally, you mentioned that you are having some itching/pain in your groin region prior to discharge. We will plan to send a prescription for Estrace cream to your pharmacy; please apply 1 g daily x 2 weeks. We also recommend that you follow-up with your bender machine at your earliest convenience. If you develop any new or worsening symptoms, such as nausea/vomiting with eat ing, recurrence of severe/intractable epigastric abdominal pain, lower back pain, fever, chills, chest pain, or trouble breathing, please return to the emergency department immediately. It was a pleasure taking care of you. Please reach out with any questions or concerns. Sincerely, The Hospital medicine team at [facility] Total Time Total Time Spent Total Time Spent (In Minutes): 45 Coding [place] [address] INP/OBS DISCH >30 MIN Patient Type Established History Comprehensive Exam Comprehensive Medical Decision Making Moderate Complexity Diagnoses Pancreatitis K85.90 Acute pancreatitis complication: unspecified Chronicity: acute Pancreatitis type: unspecified pancreatitis type Diverticulitis K57.92 COPD (chronic obstructive pulmonary disease) J44.9
== END 2025-07-03 18:33 | disposition home or self-care (01) ==
LOC: 3N 16:34 → ED 16:34 → SUATTDRO 20:09 → 3N 21:07